=== PATIENT | female | born 1950 | race African-American/Black ===

== ENCOUNTER → 2016-12-22 | Day surgery (SDC) | payer OTHER ==
[~2016-12-22] MED LIST: DORZ1SOL2 OD; LACTATED RINGER'S 1000 ML INJ 1,000 ML ONE; PROPOFOL 200 MG/20 ML AMP IV ONE; TRAV0.00 EACH EYE
== END | disposition home or self-care (01) ==
LOC: ESDC 10:57
PROVIDERS: ATTEND Internal Medicine Gastroenterology
DX: K62.5 Hemorrhage of anus and rectum (principal); D12.4 Benign neoplasm of descending colon
CPT/HCPCS: 00810; 45380; 88305; J7120